=== PATIENT | male | born 1965 | race Caucasian/White ===

== ENCOUNTER 2017-09-18 17:16 | Emergency (ER) | payer SELFPAY ==
[~2017-09-18] VITALS: Ht 172.7 cm; Wt 77.1 kg
[2017-09-18] MEDS ORDERED: METH-313 PO (18:12)
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
[2017-09-18] MEDS ORDERED: KETOROLAC 60 MG/2 ML VIAL IM ONE (18:15)
[2017-09-18] MEDS ORDERED: ORPHENADRINE 60 MG/2 ML (NORFLEX) AMP IM ONE (18:15)
--- NOTE | 2017-09-18 18:40 | Diagnostic Imaging Report ---
INDICATION: Trauma, back pain. COMPARISON: None. EXAMINATION: Three views of the lumbar spine were obtained. FINDINGS: Normal alignment. There is no subluxation or fracture. Minimal degenerative change is seen at the L3-4 and L4-5 disc space levels. There is no osseous lesion. SI joints are symmetric. IMPRESSION: Minimal degenerative changes. No traumatic malalignment or fracture. Dictated by: Dictated on workstation # [id number]
[2017-09-18 19:03] VITALS: BP 124/92
== END 2017-09-18 19:02 | disposition home or self-care (01) ==
LOC: ER 17:19 → EDBD 17:19 → ER 19:02
DX: S39.012A Strain of muscle, fascia and tendon of lower back, initial encounter (principal); R40.2142 Coma scale, eyes open, spontaneous, at arrival to emergency department; R40.2252 Coma scale, best verbal response, oriented, at arrival to emergency department; R40.2362 Coma scale, best motor response, obeys commands, at arrival to emergency department; F17.210 Nicotine dependence, cigarettes, uncomplicated; V49.50XA Passenger injured in collision with unspecified motor vehicles in traffic accident, initial encounter
CPT/HCPCS: 72100; 96372

== ENCOUNTER 2017-11-01 23:57 | Emergency (ER) | payer OTHER ==
[~2017-11-01] VITALS: Ht 175.3 cm; Wt 79.4 kg
[~2017-11-01 23:57] MED LIST: METH-313 PO
[2017-11-02] MEDS ORDERED: KETOROLAC 60 MG/2 ML VIAL IM ONE (01:45)
[2017-11-02] MEDS ORDERED: diphenhydrAMINE 50 MG/ML INJ (BENADRYL) IM ONE (01:45)
[2017-11-02] MEDS ORDERED: ORPHENADRINE 60 MG/2 ML (NORFLEX) AMP IM ONE (01:45)
[2017-11-02] MEDS ORDERED: TRAM-42 PO (03:15)
[2017-11-02] MEDS ORDERED: MELO15TA14 PO (03:15)
[2017-11-02] MEDS ORDERED: ORPH100T PO (03:15)
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
[2017-11-02 03:36] VITALS: BP 100/68
--- NOTE | 2017-11-02 06:56 | Diagnostic Imaging Report ---
PROCEDURE: CT lumbar spine without contrast. TECHNIQUE: Multiple contiguous axial images were obtained through the lumbar spine without the use of intravenous contrast. Sagittal and coronal reformations were then performed. INDICATION: Low back pain FINDINGS: Lumbar body heights maintained, the alignment anatomic. No acute or chronic fracture. There is mild degenerative narrowing of the disc spaces with small anteriorly oriented mid to lower lumbar osteophytes. No substantial soft tissue or osseous canal stenosis found and no significant foraminal narrowing. IMPRESSION: Mild degenerative changes aligned anatomically. No fracture or acute finding. Dictated by: Dictated on workstation # [id number]
== END 2017-11-02 03:36 | disposition home or self-care (01) ==
LOC: EDUNIT# 23:57 → ER 11-02 00:01
DX: M54.5 Low back pain (principal); G89.29 Other chronic pain; F17.210 Nicotine dependence, cigarettes, uncomplicated
CPT/HCPCS: 72131; 96372

== ENCOUNTER → 2017-11-28 | Outpatient (CLI) | payer OTHER ==
[~2017-11-28] MED LIST changes: +MELO15TA14 PO; +ORPH100T PO; +TRAM-42 PO
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
== END ==
LOC: RAD 15:45
PROVIDERS: ATTEND Nurse Practitioner Community Health
DX: M51.16 Intervertebral disc disorders with radiculopathy, lumbar region (principal); M99.73 Connective tissue and disc stenosis of intervertebral foramina of lumbar region
CPT/HCPCS: 72148

== ENCOUNTER 2018-02-24 09:25 | Outpatient (RCR) | payer OTHER | END 2018-03-22 12:00 | disposition home or self-care (01) | PROVIDERS: ATTEND Nurse Practitioner Community Health | DX: M54.16 Radiculopathy, lumbar region (principal); V99.XXXD Unspecified transport accident, subsequent encounter ==

== ENCOUNTER 2019-04-26 10:47 | Emergency (ER) | payer SELFPAY ==
[~2019-04-26] VITALS: Ht 175.2 cm; Wt 72.7 kg
--- NOTE | 2019-04-26 10:55 | ED Chest Pain ---
General Stated Complaint: CHEST PAIN Source: patient Exam Limitations: no limitations History of Present Illness Date Seen by Provider: Apr 26, 2019 Time Seen by Provider: 10:52 Initial Comments [place] by private [place] [facility] [place] where he reported chest pain. 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 Pain lasted for about 20 minutes before subsiding spontaneously. This was just to the left of the center of his lower chest, very sharp in nature. He does not recall anything making it better or worse. He's never had this before. No cough or shortness of breath or sweating. He does smoke cigarettes, he has no known heart disease, he is not diabetic, does not have known hypercholesterolem ia, does not have hypertension. Pain remains absent at this time. Timing/Duration: gone now Severity/Quality: moderate Location: central Radiation: no radiation Activities at Onset: none ASA po HAIR STYLIST: No NTG SL HAIR STYLIST: No Allergies and Home Medications Allergies Coded Allergies: No Known Drug Allergies (Unverified , 09/18/17) Home Medications Meloxicam 15 Mg Tablet, 15 MG PO DAILY Prescribed by: GUMARO SORTO on 11/02/17314 Methocarbamol 750 Mg Tablet, 750-1,500 MG PO Q6H PRN for PAIN-MODERATE TO SEVERE Prescribed by: LIMA TALBERT on 09/18/171811 Orphenadrine Citrate 100 Mg Tablet.er, 100 MG PO BID FOR MUSCLE SPASMS Prescribed by: GUMARO SORTO on 11/02/17314 Tramadol HCl 50 Mg Tablet, 50 MG PO Q4H Prescribed by: GUMARO SORTO on 11/02/17314 Patient Home Medication List Home Medication List Reviewed: Yes Review of Systems Review of Systems Constitutional: see HPI EENTM: No Symptoms Reported Respiratory: No Symptoms Reported; Denies See HPI, Denies Cough Cardiovascular: See HPI, Chest Pain Gastrointestinal: No Symptoms Reported Genitourinary: No Symptoms Reported Musculoskeletal: no symptoms reported Skin: no symptoms reported Psychiatric/Neurological: No Symptoms Reported Endocrine: No Symptoms Reported Hematologic/Lymphatic: No Symptoms Reported Past Kdtsqom-Jukclq-Akxisn Hx Patient Social History Alcohol Beverage of Choice: Beer Type Used: Cigarettes 2nd Hand Smoke Exposure: Yes Recent Hopitalizations: No Seasonal Allergies Seasonal Allergies: Yes Past Medical History Surgeries: Yes Orthopedic Respiratory: No Cardiac: No Neurological: No Genitourinary: No Gastrointestinal: No Musculoskeletal: Yes Back Injury, Chronic Back Pain Endocrine: No HEENT: No Cancer: No Psychosocial: No Integumentary: No Blood Disorders: No Physical Exam Vital Signs Capillary Refill : Height, Weight, BMI Height: 5'9.00" Weight: 175lbs. oz. 79.196954bl; BMI Method:Stated General Appearance: No Apparent Distress, WD/WN HEENT: PERRL/EOMI, TMs Normal Neck: Full Range of Motion, Normal Inspection Respiratory: Normal Breath Sounds, No Accessory Muscle Use, No Respiratory Distress Cardiovascular: Regular Rate, Rhythm Gastrointestinal: Normal Bowel Sounds, Non Tender, Soft Extremity: Normal Capillary Refill Neurologic/Psychiatric: Alert, Oriented x3 Skin: Normal Color, Warm/Dry Progress/Results/Core Measures Results/Orders My Orders Orders - LIMA TALBERT APRN Cbc With Automated Diff (04/26/19 10:48) Magnesium (04/26/19 10:48) Chest 1 View, Ap/Pa Only (04/26/19 10:48) Ekg Tracing (04/26/19 10:48) Comprehensive Metabolic Panel (04/26/19 10:48) Myoglobin Serum (04/26/19 10:48) Protime With Inr (04/26/19 10:48) Partial Thromboplastin Time (04/26/19 10:48) O2 (04/26/19 10:48) Monitor-Rhythm Ecg Trace Only (04/26/19 10:48) Lipid Panel (04/27/19 06:00) Ed Iv/Invasive Line Start (04/26/19 10:48) Troponin I (04/26/19 10:48) Departure Impression Primary Impression: Chest pain Qualified Codes: R07.9 - Chest pain, unspecified Disposition: HOME, SELF-CARE Condition: Stable Departure-Patient Inst. Referrals: DERECK HARDIN (PCP) Primary Care Physician [facility] (Family) Primary Care Physician LIMA TALBERT APRN Apr 26, 2019 10:55
[2019-04-26] MEDS ORDERED: ASPIRIN 81 MG CHEW (CHILDREN'S ASA) PO ONE (11:00)
[2019-04-26 11:02] LABS: BASOPHILS % (AUTO) 0 % (0-10); EOSINOPHILS % (AUTO) 1 % (0-10); HEMATOCRIT 45 % (40-54); HEMOGLOBIN 15.6 G/DL (13.3-17.7); LYMPHOCYTES # (AUTO) 1.3 X 10^3 (1.0-4.0); LYMPHOCYTES % (AUTO) 22 % (12-44); MEAN CORPUSCULAR HEMOGLOBIN 34 PG (25-34); MEAN CORPUSCULAR HGB CONC 35 G/DL (32-36); MEAN CORPUSCULAR VOLUME 99 FL (80-99); MEAN PLATELET VOLUME 9.5 FL (7.4-10.4); MONOCYTES # (AUTO) 0.4 X 10^3 (0.0-1.0); MONOCYTES % (AUTO) 7 % (0-12); NEUTROPHILS % (AUTO) 69 % (42-75); PLATELET COUNT 170 10^3/uL (130-400); RED CELL DISTRIBUTION WIDTH 12.5 % (10.0-14.5); WHITE BLOOD COUNT 5.8 10^3/uL (4.3-11.0)
[2019-04-26 11:18] LABS: PROTHROMBIN TIME PATIENT 13.1 SEC (12.2-14.7)
--- NOTE | 2019-04-26 11:24 | Diagnostic Imaging Report ---
EXAMINATION: Portable erect AP chest at 11:04 a.m. INDICATION: Chest pain. COMPARISON: There are no prior studies available for comparison. FINDINGS: The heart size is within normal limits. The lungs are clear. There is no evidence for failure, pneumonia, or for a pleural effusion. The mediastinum is not widened. The osseous structures are intact. IMPRESSION: There is no evidence for active disease. Dictated by: Dictated on workstation # [id number]
[2019-04-26 11:29] LABS: ALANINE AMINOTRANSFERASE 25 U/L (0-55); ALBUMIN 4.6 GM/DL (3.2-4.5); ALKALINE PHOSPHATASE 87 U/L (40-136); BILIRUBIN,TOTAL 0.5 MG/DL (0.1-1.0); BUN/CREATININE RATIO 10; CALCIUM 9.5 MG/DL (8.5-10.1); CARBON DIOXIDE 26 MMOL/L (21-32); CHLORIDE 103 MMOL/L (98-107); CREATININE SERUM 0.86 MG/DL (0.60-1.30); GFR ESTIMATED > 60; GLUCOSE 98 MG/DL (70-105); MAGNESIUM 1.9 MG/DL (1.6-2.4); SODIUM 140 MMOL/L (135-145); TOTAL PROTEIN 7.4 GM/DL (6.4-8.2)
--- NOTE | 2019-04-26 11:36 | NUR ---
TO ROOM NO C/O MONITOR SR.
--- NOTE | 2019-04-26 12:59 | NUR ---
2ND TROPONIN DRAWB BY TECH.
[2019-04-26] MEDS ORDERED: HYDR-4226 PO (13:42)
[2019-04-26 13:43] VITALS: BP 136/94
--- OUTSIDE RECORDS SUMMARY | 2019-04-30 13:12 | XMS REPORT ---
Author Author Te HARDIN Organization [facility] Address [address] [place] [address] Care Team Providers Care Search Lead Name Role Phone DERECK HARDIN Unavailable PROBLEMS Type Condition ICD9-CM Code [id number] Code Onset Dates Condition S tatus SNOMED Code Problem Acute left-sided low back pain with left-sided sciatica M54.42 Active [id number] ALLERGIES No Known Allergies ENCOUNTERS Encounter Location Date Diagnosis [place] [address] [address] Nov, Left shoulder pain M25.512 [place] [address] [address] Sep, [address] [address] Jul, Bronchitis J40 and Infected tick bite, i nitial encounter W57.XXXA [place] [address] [address] Jul, [place] [address] [address] June, [place] [address] [address] Apr, Cervical neuralgia M54.12 ; Thoracic kathi ralgia M79.2 and Lumbar neuralgia M54.16 [place] [address] [address] Apr, [place] [address] [address] Apr, [place] [address] [address] 13 Mar, 2018 Thoracic spine pain M54.6 and Cervical p ain M54.2 [place] [address] [address] Feb, Acute left-sided low back pain with left -sided sciatica M54.42 [place] [address] [address] Feb, [place] [address] [address] Feb, Acute left-sided low back pain with left -sided sciatica M54.42 [place] [address] [address] Dec, Acute left-sided low back pain with left -sided sciatica M54.42 ; Tobacco abuse Z72.0 and Tobacco abuse counseling Z71.6 [place] [address] [address] Dec, [place] [address] [address] Nov, [place] [address] [address] Nov, [place] [address] [address] Nov, Lumbar neuritis M54.16 [place] [address] [address] Nov, Lumbar neuritis M54.16 [place] [address] [address] Oct, [place] [address] [address] Jul, Bronchitis J40 IMMUNIZATIONS No Known Immunizations SOCIAL HISTORY Never Assessed REASON FOR VISIT Pain (acute) back, PT states he has been seen previously for this but still marnie john -[facility]ue[facility] [employer] PLAN OF CARE VITAL SIGNS Height 68 in 2018-05-17 Weight 164.1 lbs 2018-05-17 Temperature 98.8 degrees Fahrenheit 2018-05-17 Heart Rate 90 bpm 2018-05-17 Respiratory Rate 20 2018-05-17 BMI 24.95 kg/m2 2018-05-17 Blood pressure systolic 148 mmHg 2018-05-17 Blood pressure diastolic 88 mmHg 2018-05-17 MEDICATIONS Medication Instructions Dosage Frequency Start Date End Date Duration S tatus Orphenadrine Citrate ER 100 MG Orally Once a day 1 tablet at bedtime 2 4h 30 day(s) Active Naproxen 500 MG Orally every 12 hrs 1 tablet with food or milk as n eeded 12h Dec, Active [place] 10-325 MG Orally every 6 hrs 1 tablet as needed 6h Apr, Active Tylenol Extra Strength 500 MG Orally every 6 hrs 1 tablet as needed 6h Active Neurontin 300 MG Orally Three times a day 1 capsule 8h Apr, 30 day(s) Active RESULTS No Results PROCEDURES No Known procedures INSTRUCTIONS MEDICATIONS ADMINISTERED No Known Medications MEDICAL (GENERAL) HISTORY Type Description Date Surgical History Right elbow surgery 11/2007 Hospitalization History Concussion 06/2013 Hospitalization History [facility] 2018
--- OUTSIDE RECORDS SUMMARY | 2019-04-30 13:12 | XMS REPORT ---
Author Author Te HARDIN Organization [facility] Address [address] [place] [address] Care Team Providers Care Sharepoint Manager Name Role Phone DERECK HARDIN Unavailable PROBLEMS Type Condition ICD9-CM Code [id number] Code Onset Dates Condition S tatus SNOMED Code Problem Acute left-sided low back pain with left-sided sciatica M54.42 Active [id number] ALLERGIES No Information ENCOUNTERS Encounter Location Date Diagnosis [place] [address] [place] [id number] [address] [place] [phone] Jul, Bronchitis J40 and Infected tick bite, initial encounter W57.XXXA [place] [address] [place] [id number] [address] [place] [phone] Jul, [place] [address] [place] [id number] [address] [place] [phone] June, [place] [address] [place] [id number] [address] [place] [phone] Apr, Cervical neuralgia M54.12 ; Thoracic neuralgia M79.2 and Lumbar neuralgia M54.16 [place] [address] [place] [id number] [address] [place] [phone] Apr, [place] [address] [facility] [id number] [address] [place] [phone] Apr, [place] [address] [place] [id number] [address] [place] [phone] Mar, Thoracic spine pain M54.6 an d Cervical pain M54.2 [place] [address] [place] [id number] [address] [place] [phone] Feb, Acute left-sided low back pa in with left-sided sciatica M54.42 [facility] [address] [id number] [address] [place] [phone] Feb, [facility] [address] [id number] [address] [place] [phone] Feb, Acute left-sided low back pa in with left-sided sciatica M54.42 [facility] [address] [id number] [address] [place] [phone] Dec, Acute left-sided low back pa in with left-sided sciatica M54.42 ; Tobacco abuse Z72.0 and Tobacco abuse counseling Z71.6 [facility] [address] [id number] [address] [place] [phone] Dec, [facility] [address] [id number] [address] [place] [phone] Nov, [facility] [address] [id number] [address] [place] [phone] Nov, [facility] [address] [id number] [address] [place] [phone] Nov, Lumbar neuritis M54.16 [facility] [address] [id number] [address] [place] [phone] Nov, Lumbar neuritis M54.16 [facility] [address] [id number] [address] [place] [phone] Oct, [facility] [address] [id number] [address] [place] [phone] Jul, Bronchitis J40 IMMUNIZATIONS No Known Immunizations SOCIAL HISTORY Never Assessed REASON FOR VISIT note PLAN OF CARE VITAL SIGNS MEDICATIONS Unknown Medications RESULTS No Results PROCEDURES No Known procedures INSTRUCTIONS MEDICATIONS ADMINISTERED No Known Medications MEDICAL (GENERAL) HISTORY Type Description Date Surgical History Right elbow surgery 11/2007 Hospitalization History Concussion 06/2013 Hospitalization History [facility] 2018
--- OUTSIDE RECORDS SUMMARY | 2019-04-30 13:13 | XMS REPORT ---
Author Author Te HARDIN Organization [facility] Address [address] [place] [address] Care Team Providers Care Manager Wound Name Role Phone DERECK HARDIN Unavailable PROBLEMS Unknown Problems ALLERGIES No Information ENCOUNTERS Encounter Location Date Diagnosis [facility] [address] [id number] [address] [place] [phone] Nov, [facility] [address] [id number] [address] [place] [phone] Nov, [facility] [address] [id number] [address] [place] [phone] Nov, Lumbar neuritis M54.16 [facility] [address] [id number] [address] [place] [phone] Nov, Lumbar neuritis M54.16 [facility] [address] [id number] [address] [place] [phone] Oct, [facility] [address] [id number] [address] [place] [phone] Jul, Bronchitis J40 IMMUNIZATIONS No Known Immunizations SOCIAL HISTORY Never Assessed REASON FOR VISIT medical question PLAN OF CARE VITAL SIGNS MEDICATIONS Unknown Medications RESULTS No Results PROCEDURES No Known procedures INSTRUCTIONS MEDICATIONS ADMINISTERED No Known Medications MEDICAL (GENERAL) HISTORY Type Description Date Surgical History Right elbow surgery 11/2007 Hospitalization History Concussion 06/2013
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
--- OUTSIDE RECORDS SUMMARY | 2019-04-30 13:13 | XMS REPORT ---
Author Author Te HARDIN Organization [facility] Address [address] [place] [address] Care Team Providers Care Captain Cannery Tender Name Role Phone LASHAWN DERECK Unavailable PROBLEMS Unknown Problems ALLERGIES No Information ENCOUNTERS Encounter Location Date Diagnosis [facility] [address] [facility] [id number] [address] [place] [phone] Nov, [facility] [address] [facility] [id number] [address] [place] [phone] Nov, Lumbar neuritis M54.16 [facility] [address] [facility] [id number] [address] [place] [phone] Nov, Lumbar neuritis M54.16 [facility] [address] [facility] [id number] [address] [place] [phone] Oct, [facility] [address] [facility] [id number] [address] [place] [phone] Jul, Bronchitis J40 IMMUNIZATIONS No Known Immunizations SOCIAL HISTORY Never Assessed REASON FOR VISIT refills PLAN OF CARE VITAL SIGNS MEDICATIONS Medication Instructions Dosage Frequency Start Date End Date Duration S rasheed Tramadol HCl 50 mg Orally every 6 hrs 1 tablet as needed 6h Nov, Active Orphenadrine Citrate ER 100 mg Orally 2 times a day 1 tablet at bed time 12h Nov, Active RESULTS No Results PROCEDURES No Known procedures INSTRUCTIONS MEDICATIONS ADMINISTERED No Known Medications MEDICAL (GENERAL) HISTORY Type Description Date Surgical History Right elbow surgery 11/2007 Hospitalization History Concussion 06/2013
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
--- OUTSIDE RECORDS SUMMARY | 2019-04-30 13:13 | XMS REPORT ---
Author Author Te HARDIN Organization [facility] Address [address] [place] [address] Care Team Providers Care Sugar Boiler Name Role Phone DERECK HARDIN Unavailable PROBLEMS Unknown Problems ALLERGIES No Information ENCOUNTERS Encounter Location Date Diagnosis [facility] [address] [facility] [id number] [address] [place] [phone] Nov, [facility] [address] [facility] [id number] [address] [place] [phone] Oct, [facility] [address] [facility] [id number] [address] [place] [phone] Jul, Bronchitis J40 IMMUNIZATIONS No Known Immunizations SOCIAL HISTORY Never Assessed REASON FOR VISIT Hospital Discharge PLAN OF CARE VITAL SIGNS MEDICATIONS Unknown Medications RESULTS No Results PROCEDURES No Known procedures INSTRUCTIONS MEDICATIONS ADMINISTERED No Known Medications MEDICAL (GENERAL) HISTORY Type Description Date Surgical History Right elbow surgery 11/2007 Hospitalization History Concussion 06/2013
--- OUTSIDE RECORDS SUMMARY | 2019-04-30 13:13 | XMS REPORT ---
Author Author Te HARDIN Organization [facility] Address [address] [place] [address] Care Team Providers Care Online Marketing Coordinator Name Role Phone DERECK HARDIN Unavailable PROBLEMS Unknown Problems ALLERGIES No Information ENCOUNTERS Encounter Location Date Diagnosis [facility] [address] [facility] [id number] [address] [place] [phone] Nov, [facility] [address] [facility] [id number] [address] [place] [phone] Nov, Lumbar neuritis M54.16 [facility] [address] [facility] [id number] [address] [place] [phone] Nov, Lumbar neuritis M54.16 [facility] [address] [facility] [id number] [address] [place] [phone] Oct, [facility] [address] [facility] [id number] [address] [place] [phone] Jul, Bronchitis J40 IMMUNIZATIONS No Known Immunizations SOCIAL HISTORY Never Assessed REASON FOR VISIT PLAN OF CARE VITAL SIGNS MEDICATIONS Unknown Medications RESULTS No Results PROCEDURES No Known procedures INSTRUCTIONS MEDICATIONS ADMINISTERED No Known Medications MEDICAL (GENERAL) HISTORY Type Description Date Surgical History Right elbow surgery 11/2007 Hospitalization History Concussion 06/2013
--- OUTSIDE RECORDS SUMMARY | 2019-04-30 13:13 | XMS REPORT ---
Author Author Te HARDIN Organization [facility] Address [address] [place] [address] Care Team Providers Care Olericulture Professor Name Role Phone DERECK HARDIN Unavailable PROBLEMS Unknown Problems ALLERGIES No Known Allergies ENCOUNTERS Encounter Location Date Diagnosis [facility] [address] [facility] [id number] [address] [place] [address] Jul, Bronchitis J40 IMMUNIZATIONS No Known Immunizations SOCIAL HISTORY Never Assessed REASON FOR VISIT Establish Care WB-MA, Left shoulder, neck and a sore throat PLAN OF CARE VITAL SIGNS Height 68 in 2017-07-22 Weight 163 lbs 2017-07-22 Temperature 98.2 degrees Fahrenheit 2017-07-22 Heart Rate 88 bpm 2017-07-22 Respiratory Rate 20 2017-07-22 Oximetry on room air:98 % 2017-07-22 BMI 24.78 kg/m2 2017-07-22 Blood pressure systolic 126 mmHg 2017-07-22 Blood pressure diastolic 80 mmHg 2017-07-22 MEDICATIONS Medication Instructions Dosage Frequency Start Date End Date Duration S tatus Doxycycline Hyclate 100 mg Orally every 12 hrs 1 capsule 12h Jul, Jul, 10 days Active Tylenol Extra Strength 500 MG Orally every 6 hrs 1 tablet as needed 6h Active PredniSONE 20 mg Orally Once a day 2 tablets 24h Jul, Jul, 05 days Active RESULTS No Results PROCEDURES No Known procedures INSTRUCTIONS MEDICATIONS ADMINISTERED No Known Medications MEDICAL (GENERAL) HISTORY Type Description Date Surgical History Right elbow surgery 11/2007 Hospitalization History Concussion 06/2013
--- OUTSIDE RECORDS SUMMARY | 2019-04-30 13:13 | XMS REPORT ---
Author Author Te HARDIN Organization [facility] Address [address] [place] [address] Care Team Providers Care Dot Net Developer Name Role Phone DERECK HARDIN Unavailable PROBLEMS Unknown Problems ALLERGIES No Information ENCOUNTERS Encounter Location Date Diagnosis [facility] [address] [id number] [address] [place] [phone] Dec, [facility] [address] [id number] [address] [place] [phone] Dec, [facility] [address] [id number] [address] [place] [phone] Nov, [facility] [address] [id number] [address] [place] [phone] Nov, [facility] [address] [id number] [address] [place] [phone] Nov, Lumbar neuritis M54.16 [facility] [address] [id number] [address] [place] [phone] Nov, Lumbar neuritis M54.16 [facility] [address] [id number] [address] [place] [phone] Oct, [facility] [address] [id number] [address] [place] [phone] Jul, Bronchitis J40 IMMUNIZATIONS No Known Immunizations SOCIAL HISTORY Never Assessed REASON FOR VISIT pain medicine PLAN OF CARE VITAL SIGNS MEDICATIONS Unknown Medications RESULTS No Results PROCEDURES No Known procedures INSTRUCTIONS MEDICATIONS ADMINISTERED No Known Medications MEDICAL (GENERAL) HISTORY Type Description Date Surgical History Right elbow surgery 11/2007 Hospitalization History Concussion 06/2013
--- OUTSIDE RECORDS SUMMARY | 2019-04-30 13:13 | XMS REPORT | Continuity of Care Document ---
Author Organization Unknown Address Unknown Phone Unavailable Allergies There is no data. Medications There is no data. Problems There is no data. Procedures There is no data. Results Test Result Range CBC - 08/17/18 16:45 WHITE BLOOD CELL COUNT 6.7 Thousand/uL 3 .8-10.8 RED BLOOD CELL COUNT 4.20 Million/uL 4.2 0-5.80 HEMOGLOBIN 14.4 g/dL 13.2-17.1 HEMATOCRIT 42.1 % 38.5-50.0 MCV 100.2 fL 80.0-100.0 MCH 34.3 pg 27.0-33.0 MCHC 34.2 g/dL 32.0-36.0 RDW 12.3 % 11.0-15.0 PLATELET COUNT 177 Thousand/uL 140-400 MPV 10.1 fL 7.5-12.5 ABSOLUTE NEUTROPHILS 4958 cells/uL 1500- 7800 ABSOLUTE LYMPHOCYTES 1226 cells/uL 850-3 900 ABSOLUTE MONOCYTES 429 cells/uL 200-950 ABSOLUTE EOSINOPHILS 60 cells/uL 15-500 ABSOLUTE BASOPHILS 27 cells/uL 0-200 NEUTROPHILS 74 % NRG LYMPHOCYTES 18.3 % NRG MONOCYTES 6.4 % NRG EOSINOPHILS 0.9 % NRG BASOPHILS 0.4 % NRG Encounters ACCT No. Visit Date/Time Discharge Status Pt. Type Provider Facility Loc./Unit Complaint [id number] 12/12/2018 11:40:00 12/12/2018 23:59: 59 CLS Outpatient DER[facility]K [facility]ARDIN [facility] [id number] 08/17/2018 16:20:00 Document Registration
== END 2019-04-26 13:43 | disposition home or self-care (01) ==
LOC: EDUNIT# 10:47 → ER 10:48
DX: R07.89 Other chest pain (principal); F17.210 Nicotine dependence, cigarettes, uncomplicated; Z77.22 Contact with and (suspected) exposure to environmental tobacco smoke (acute) (chronic)
CPT/HCPCS: 36415; 71045; 80053; 83735; 83874; 84484; 85025; 85379; 85610; 85730; 93005; 93041

== ENCOUNTER 2021-06-29 21:15 | Emergency (ER) | payer SELFPAY ==
[~2021-06-29] VITALS: Ht 173 cm; Wt 74.8 kg
[~2021-06-29 21:15] MED LIST changes: +HYDR-4226 PO
[2021-06-29 21:23] VITALS: BP 113/89
[2021-06-29] MEDS ORDERED: TETANUS,DIPTH,PERTUSS P/F (BOOSTRIX) 0.5 ML VIAL IM ONE (21:30)
[2021-06-29] MEDS ORDERED: LIDOCAINE 1% INJ 20 ML VIAL INJ ONE (21:30)
[2021-06-29] MEDS ORDERED: CEPHALEXIN 250 MG (KEFLEX) CAP PO SCH (21:30)
[2021-06-29] MEDS ORDERED: CEPH500T PO (21:34)
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
== END 2021-06-29 21:58 | disposition home or self-care (01) ==
LOC: EDUNIT# 21:15 → ER 21:17
DX: S61.411A Laceration without foreign body of right hand, initial encounter (principal); Z23 Encounter for immunization; V29.9XXA Motorcycle rider (driver) (passenger) injured in unspecified traffic accident, initial encounter
CPT/HCPCS: 12002; 29130; 90715